=== PATIENT | female | born 1970 | race Caucasian/White ===

== ENCOUNTER 2025-05-17 12:35 | Emergency (ER) | payer BC, SELFPAY ==
--- OUTSIDE RECORDS SUMMARY | 2021-10-13 09:29 | XMS_ITS | Continuity of Care Document ---
Author Organization [facility] Address [address] [address] [place] [address] Phone Care Team Providers Care Ordnance Keeper Name Role Phone Paolo Cassidy MD Unavailable Unavailable Allergies, Adverse Reactions, Alerts Substance Reaction Status Criticality tetracycline Active No Information VIT CALC,IRON,FOLIC ACID (LESS THAN 1 MG) Hives Active No Information VITAMINS WITH CALCIUM Hives Active No Information folic acid Hives Active No Information ferrous sulfate Hives Active No Informati on ferrous fumarate Hives Active No Informat ion PROCAINE HCL increases heart rate Active No Info rmation Medications Medication Instructions Dosage Effective Dates (start - stop) Status Comments lansoprazole 30 mg capsule,delayed release take 1 by Oral route 2 times every day 1 - Active 3 month supply PreserVision AREDS-2 250 mg-200 unit-40 mg-1 mg capsule take 1 capsule by oral route 2 times every day 1 capsule - Active LANSOPRAZOLE (unknown strength) take 1 capsule by ORAL route every day before a meal Not Available - Active losartan 100 mg-hydrochlorothiaz frank 12.5 mg tablet take 1 tablet by oral route every day 1.00 tablet - Active bupropion HCl SR 150 mg tablet,12 hr sustained-release take 1 tablet by ORAL route every day 150 MG - Active loratadine 10 mg tablet take 1 tablet by oral route every day 10 MG - Active atenolol 25 mg tablet take 0.5 tablet by oral route every day 12.5 MG - Active vitamin B complex tablet take 1 Tablet by Oral route every day 1 Tablet - Active VITAMIN D3 (unknown strength) take 1 by Oral route every day Not Available - Active TRIAMCINOLONE ACETONIDE (unknown strength) apply by topical route 2 times every day PRN Not Available - Active Procedures Procedure Date Offic/outpt E&m Estab Mod-hi 2 20 Ugi Endo; W/bx 1/mx Level Iv-surg Path Gross/micro 20 Ugi Endo; W/bx 1/mx Level Iv-surg Path Gross/micro 18 Ugi Endo; W/bx 1/mx Level Iv-surg Path Gross/micro 10 Ugi Endo; W/bx 1/mx Level Iv-surg Path Gross/micro 08 Advance Directives Directive Yes / No Effective Date File Name No Information Encounters Encounter Description Practice Location Reason(s) For Visit Diagnoses Date Provider Providers Copied on Encounter [facility] E, [address] [address], [facility] [place], [id number], [place] tel:[phone] [facility] No Information 2 Khanh Boone. [address] [place] [address], [id number], [place]. tel:[phone] [facility] E, [address] [address], [facility] [place], [id number], [place] tel:[phone] [facility] No Information 1 Khanh Boone. [address] [place] [address], [id number], [place]. tel:[phone] Offic/outpt E&m Estab Mod-hi 2 [facility] E, [address] [address], [facility] [place], [id number], [place] tel:[phone] [facility] GI Symptoms or Concerns (chief complaint) Dyspepsia 0 Khanh Boone. [address] [facility], [facility] [address], [place], [place], [id number], [place]. tel:[phone] Pelon Pearson MD. tel:[phone] erring Provider: Referral Self, USE FOR SELF REFERRALS. [facility], [address] [address], [place], [place], [id number], [place] tel:[phone] [facility] Epigastric painGastroesop hageal reflux disease without esophagitisGas tro-esophageal reflux disease without esophagitisEpi gastric pain 0 Demetrio Herrera. [address] [facility], [address], [id number], [place]. [phone] Pelon Pearson MD. tel:[phone] [place]ring [place]: [place], [address], [address]. tel:[phone] [facility], [address] [address], [place], [id number], [place] tel:[phone] No Information 0 No Information [place]erring [place]: [place], [address], [address]. tel:[phone] [facility], [address] [address], [place], [id number], [place] tel:[phone] [facility] Diarrhea, unspecified typeCentral abdominal painEpigastric painEpigastric painDiarrhea, unspecified 8 No Information [facility], [address] [address], [place], [id number], [place] tel:[phone] [facility] Polyp-intes/re ct/stom-unc BehGastric Polyp-benignGa stroduodenal Dis Nos 0 Shadi Banerjee. [address] [facility], [facility] [address], [place], [place], [id number], [place]. tel:[phone] Referring Provider: [place] Har[place], [address], [place], [address]. tel:[phone] [facility] [address] [address], [place], [id number], tel:[phone] [facility] Gastroduodenal Dis NosGastric Polyp-benign 200 8 No Information Family History Family Member Type Diagnosis Age At Onset Father Problem (finding) Colon polyps Mother Problem (finding) malignant neop lasm of breast in first degree relative Son Problem (finding) Alive and well Father Problem (finding) gallbladder disease Mother Problem (finding) Alive and well Father Problem (finding) Alive and well Father Problem (finding) GERD Immunizations Vaccine Date Status Comments Fluzone Quad 6mo or older administered Note: [facility] bi-direct ional interface ; Source: Other Registry Fluzone Quad 6mo or older administered Note: [facility] bi-direct ional interface ; Source: Other Registry Fluzone Quad 6mo or older administered Note: [facility] bi-direct ional interface ; Source: Other Registry Fluzone Quad 6mo or older administered Note: [facility] bi-direct ional interface ; Source: Other Registry Fluzone Quad 6mo or older administered Note: [facility] bi-direct ional interface ; Source: Other Registry tetanus toxoid, reduced diphtheria toxoid, and acellular pertussis vaccine, adsorbed administered Note: [facility] b i-directional interface ; Source: Other Registry influenza virus vaccine, unspecified formulation administered Note: [facility] bi-di rectional interface ; Source: Other Registry Influenza, seasonal, injecta ble, preservative free administered Note: [facility] bi-direct ional interface ; Source: Other Registry Novel [id number], preservative-free, injectable administered Note: [facility] bi-directional interface ; Source: Other Registry Influenza, seasonal, injectable administe red Note: [facility] bi- directional interface ; Source: Other Registry Influenza, seasonal, injectable administe red Note: [facility] bi- directional interface ; Source: Other Registry tetanus and diphtheria toxoi ds, adsorbed, preservative free, for adult use (2 Lf of tetanus toxoid and 2 Lf of diphtheria toxoid) administered Note: [facility] bi-direct ional interface ; Source: Other Registry Payers Payer name Insurance type Covered republican ID Authoriza timerle(s) [employer] CI [id number] Social History Type Description Quantity Date Captured Comments Sex Female Smoking Status No Information Chief Complaint And Reason For Visit No Information Reason For Referral Reason For Referral No Information History Of Present Illness Encounter Date Complaint History Of Prese nt Illness GI Symptoms or Concerns Ms. Magalis whittaker is a 49-year-old woman with a history of anxiety/depression, hypertension, and chronic epigastric discomfort, who is seen in the office for consultation at the request of Dr. Bonita Patino for epigastric discomfort.Ms. Caputo has had chronic acid, indigestion, and burning sensations in the epigastric region going on for over 10 years. She has had little if any retrosternal burning or regurgitation. She denies any dysphagia or unexplained weight loss.She has undergone multiple endoscopies over the years which have largely been unremarkable and reassuringly normal.She has also treated this with antacids of varying types over the years including Aciphex, Nexium, Prevacid, ranitidine, and Pepcid. Ranitidine was very helpful, but was recently withdrawn from the market. Pepcid, Nexium, and Aciphex were suboptimally effective. Prevacid was helpful, but was unaffordable.Her most recent upper endoscopy was in September 2019. This was a normal exam inclu Functional Status Date Functional Assessmen t No Information Instructions Date Instruction Additional Infor jagjit 1.) Symptoms are con sistent with dyspepsia (likely non-ulcer dyspepsia).2.) If the Prevacid (lansoprazole) seems to be effective I would suggest continued use of this. I would recommend using the [employer] program/gudelia to find the most affordable pharmacy option.3.) We could try other antacid medications as well, if needed, however the lansoprazole seems like a good option for you.4.) Another possible treatment would be the herbal supplement Iberogast. This is typically purchased online. Related to Dyspepsia Non-ulcer dyspepsia (Functional dyspepsia) Related to Dyspepsia Dyspepsia Related to Dyspe psia Assessments Type Assessment Date No Information Patient Care Teams Name Effective Dates (start - stop) Status Members No Information
[2025-05-17 12:42] VITALS: BP 109/72; PULSE 86; RESP 18; TEMP 36.3; O2SAT 98; BMI 30.9
--- NOTE | 2025-05-17 12:53 | CRLHL7_ITS ---
For Patients: As a result of the Century Cures Act, medical imaging exams and procedure reports are released immediately into your electronic medical record. You may view this report before your referring provider. If you have questions, please contact your health care provider. INDICATION: Chest pain. TECHNIQUE: Chest 1 portable view. COMPARISON: None. FINDINGS: No pneumothorax or pleural effusion. Lungs are clear. Cardiac and mediastinal contours are within normal limits. Upper abdomen and osseous structures as imaged show no acute abnormality. IMPRESSION: No evidence of acute cardiopulmonary disease. Dictated by Carlo Do MD @ 05/17/2025 1:31:45 PM (Electronically Signed)
--- NOTE | 2025-05-17 12:54 | ED_ITS ---
HPI - Chest Pain General Chief Complaint: Chest Pain Stated Complaint: Pain in chest Time Seen by Provider: 05/17/25 12:42 History of Present Illness HPI narrative: Patient is a 54-year-old woman with history of hypertension who has been having increasingly severe substernal chest pain with activity. He has not had any significant pain in the last day or so but is troubled by the progressive nature of her chest pain. She has describes no shortness of breath no diaphoresis no nausea no vomiting. She is a nonsmoker. She has no previous history of coronary disease. She has no lower extremity swelling no cough sputum production. No fevers no chills. Related Data Home Medications ?Medication ?Instructions ?Recorded ?Confirmed atenolol PO DAILY 05/17/25 bupropion HCl PO DAILY 05/17/25 lansoprazole PO DAILY 05/17/25 losartan PO DAILY 05/17/25 Allergies Allergy/AdvReac Type Severity Reaction Status Date / Time Tetracyclines Allergy Unknown Verified 05/17/25 12:46 procaine (From Novocain) AdvReac Intermediate Palpitation Verified 05/17/25 12:46 s Review of Systems Status of ROS Reports: 10 or more systems reviewed and unremarkable except as noted in History and below Exam Narrative Exam Narrative: EXAM GENERAL: Patient appears comfortable and well. EYES: No scleral icterus. LYMPH: No supraclavicular or cervical lymphadenopathy. SKIN: Visible skin seen during exam normal or with benign process only. EXT: No dependent lower extremity pedal edema. HEART: Regular rate and rhythm with no murmurs, rubs, or gallops. LUNGS: Clear to auscultation bilaterally with no crackles or wheezes. ABD: Soft, non tender, non distended. PSYCH: Good eye contact, speech is not pressured. Const Vital Signs, click to edit/add: Vital Signs - 24 hr 05/17/25 12:42 Temperature 97.4 F L Pulse Rate [Pulse Oximeter] 86 Respiratory Rate 18 Blood Pressure [Right Upper Arm] 109/72 Pulse Oximetry 98 Oxygen Delivery Method Room Air Course Course ED Course: Patient seen examined. EKG chest x-ray D-dimer troponin CBC comprehensive metabolic panel pending. Vital Signs Vital signs: Initial Vital Signs Temperature 97.4 F L 05/17/25 12:42 Temperature Source Temporal Artery Scan 05/17/25 12:42 Pulse Rate 86 05/17/25 12:42 Respiratory Rate 18 05/17/25 12:42 Blood Pressure 109/72 05/17/25 12:42 Blood Pressure Mean 84 05/17/25 12:42 Blood Pressure Position Sitting 05/17/25 12:42 Pulse Oximetry 98 05/17/25 12:42 Oxygen Delivery Method Room Air 05/17/25 12:42 Vital Signs Temperature 97.4 F L 05/17/25 12:42 Pulse Rate 86 05/17/25 12:42 Respiratory Rate 18 05/17/25 12:42 Blood Pressure 109/72 05/17/25 12:42 Pulse Oximetry 98 05/17/25 12:42 Oxygen Delivery Method Room Air 05/17/25 12:42 Temperature 97.4 F L 05/17/25 12:42 Pulse Rate 86 05/17/25 12:42 Respiratory Rate 18 05/17/25 12:42 Blood Pressure 109/72 05/17/25 12:42 Pulse Oximetry 98 05/17/25 12:42 Oxygen Delivery Method Room Air 05/17/25 12:42 MDM - Chest Pain MDM Narrative Medical decision making narrative: Patient is a 54-year-old woman who has been having progressive chest pain with exertion over the last several weeks. She has history of hypertension but no personal history of coronary disease. She presents to the emergency room largely asymptomatic were EKG shows normal sinus rhythm. Chest x-ray is unremarkable upon my review. D-dimer troponin CBC comprehensive metabolic panel all unremarkable. At this time reassurance is offered we did order a stress echocardiogram as an outpatient. She will limit her activity to activities of daily living in the interim and will come in if symptoms change or worsen. Lab Data Labs: Lab Results 05/17/25 Range/Units 13:09 WBC 7.25 (4.50-11.00) K/uL RBC 4.67 (4.00-5.20) m/uL Hgb 13.6 (12.0-16.0) gm/dL Hct 39.9 (33.0-51.0) % MCV 85 (80-100) fL MCH 29 (26-34) pg MCHC 34 (32-36) gm/dL RDW Coeff of Garrett 14.1 (11.5-15.5) % Plt Count 382 (140-440) K/uL Neut % (Auto) 50.5 (42.0-72.0) % Lymph % (Auto) 27.7 (20-44) % [place] % (Auto) 13.1 H (0.0-11.0) % Eos % (Auto) 8.0 H (0.0-7.0) % Baso % (Auto) 0.6 (0.0-3.0) % Neut # (Auto) 3.66 (1.7-7.0) K/uL Lymph # (Auto) 2.01 (0.90-2.90) K/uL [place] # (Auto) 0.90 (0.00-0.90) K/UL Eos # (Auto) 0.60 H (0.00-0.50) K/uL Baso # (Auto) 0.04 (0.00-0.30) K/uL Abs Immat Gran (auto) 0.01 (0.00-0.30) K/uL Imm/Tot Granulo (auto) 0.1 % D-Dimer Quant (PE/DVT) 0.68 H (0.00-0.50) ug/ml Sodium 138 (135-149) mmol/L Potassium 4.0 (3.6-5.1) mmol/L Chloride 100 (96-114) mmol/L Carbon Dioxide 31 (20-32) mmol/L Anion Gap 7 (7-15) mEq/L BUN 18 (7-30) mg/dL Creatinine 1.0 (0.5-1.5) mg/dL Estimated Creat Clear 54.89 Estimated GFR 67 ml/min Glucose 94 (60-115) mg/dL Calcium 9.3 (8.4-10.6) mg/dL Total Bilirubin 0.5 (0.1-1.5) mg/dL AST 33 (12-35) U/L ALT 30 (4-35) U/L Alkaline Phosphatase 76 (40-150) U/L Troponin I < 0.01 (0.01-0.04) ng/mL Total Protein 7.6 (6.0-8.3) g/dL Albumin 4.4 (3.3-5.0) g/dL Discharge Plan Discharge Clinical Impression: Chest pain Patient Disposition: Home, Self-Care Condition: Stable Instructions: Chest Pain (ED) Additional Instructions: Rest Continue current medications. Outpatient stress echocardiogram. Limit activity to activities of daily living. Activity Level: No Restrictions Discharge Diet: Regular Prescriptions: No Action atenolol PO DAILY losartan PO DAILY bupropion HCl [Wellbutrin] PO DAILY lansoprazole PO DAILY Follow Up/Referrals: Provider,Not a Local [Primary Care Provider, Family Practice] Stand Alone Forms: [employer] Info Instructions
--- OUTSIDE RECORDS SUMMARY | 2025-05-17 13:05 | XMS_ITS | Encounter Summary ---
Author Organization [facility] Address [address] [facility] [place] [address] Care Team Providers Care Watch Repair Technician Name Role Phone Sukumar Amador MD, Bonita Primary Care Provider [phone] Ayde Melo APRN PUBLIC WORKS DIRECTOR Unavailable [phone] Evelyn Thakkar MD Unavailable U navailable Ayde Melo APRN PUBLIC WORKS DIRECTOR Unavailable [phone] Evelyn Thakkar MD Unavailable U navailable Ayde Melo APRN PUBLIC WORKS DIRECTOR Unavailable [phone] Jarett Murray OD Unavailable [phone] Donita Gonzalez MD Unavailable + Donita Gonzalez MD Unavailable + Reason for Visit * Reason Onset Date Comments MyChart Communication 04/17/2022 Encounter Details Date Type Department Care Team (Latest Contact Info) Description 04/17/2022 MyC Medical Advice [facility] [place] [address] [facility] [address] [place] [phone] Ayde Melo APRN PUBLIC WORKS DIRECTOR [address] [facility] [address] [place], [place] [id number] MyChart Communication Social History Tobacco Use Types Packs/Day Years Used Date Smoking Tobacco: Never Smokeless Tobacco: Never Alcohol Use Standard Drinks/Week Comments Not Asked 0 (1 standard drink = 0.6 oz pur e alcohol) PHQ-2 Answer Date Recorded PHQ-2 Score 0 04/15/2022 Comments No Sex and Gender Information Value Date Recorded Sex Assigned at Not on file Legal Sex Female 4:32 AM [employer]ICA[employer] Gender Identity Not on file Sexual Orientation Not on file Occupation Industry Job Start Date Job End Date Not on file Not on file Not on file Not on file COVID-19 Exposure Response Date Recorded In the last 10 days, have joel u been in contact with someone who was confirmed or suspected to have Coronavirus/COVID-19? No / Unsure 04/15/2022 9:48 AM CDT documented as of this encounter Plan of Treatment Not on file documented as of this encounter Visit Diagnoses Not on filedocumented in this encounter Additional Health Concerns Assessment Noted Time PHQ-9 Depression Total Score: 3 12/14/19 19 7:36 AM CDT documented as of this encounter Care Teams Watch Repair Technician Relationship Specialty [place] [address] [facility] [address] [place] [address] PCP - General 04/15/22 Ayde Melo APRN PUBLIC WORKS DIRECTOR [address] [facility] [address] [facility] [place] [address] Assigned OBGYN Provider 04/23/22 Evelyn Thakkar MD [address] [place] [address] Assigned OBGYN Provider 05/21/22 06/23/23 Ayde Melo APRN PUBLIC WORKS DIRECTOR [address] [facility] [address] [address] [place] [address] Assigned OBGYN Provider 06/24/23 Evelyn Thakkar MD Assigned OBGYN Provider 11/03/23 12/11/23 Ayde Melo APRN PUBLIC WORKS DIRECTOR [address] [address] Assigned OBGYN Provider 12/12/23 Jarett Murray OD [address] [place] [address] [address] [place] [phone] Optometry 08/27/24 Donita Gonzalez MD [address] [place] [id number] Ophthalmology 12/02/24 Donita Gonzalez MD [address] [place] [address] [id number] Assigned Surgical Provider 01/10/25 documented as of this encounter
--- OUTSIDE RECORDS SUMMARY | 2025-05-17 13:05 | XMS_ITS | Clinical Summary ---
Author Organization [facility] Address [address] [place] [id number] Care Team Providers Care Letterset Press Set Up Operator Name Role Phone Bonita Patino MD Primary Care Provider [phone] Allergies Active Allergy Reactions Criticality Noted Date Comments Ferrous Fumarate Hives 04/01/2010 Ferrous Sulfate Rash Low 04/01/2010 Multivit,Tx W/Iron (Hematinic) Rash Low 04/01 Procaine Tachycardia 04/11/2011 Omeprazole Itching 07/17/2018 Vit-Iron Fum-Folic Ac Hives 04/01 Medications lansoprazole (PREVACID) 30 mg capsule Take 1 capsule by mouth once daily. 30 capsule 6 4 Active cholecalciferol (VITAMIN D-3) 2,000 unit capsuleIndicatio ns:History of vitamin D deficiency Take 1 capsule by mouth once daily. 90 capsule 8 Active b complex vitamins (VITAMIN B COMPLEX) capsuleIndicatio ns:Mild recurrent major depression Take 1 capsule by mouth once daily. 0 8 Active losartan-hydroch lorothiazide (HYZAAR) 100-12.5 mg tabletIndication s:Essential hypertension, benign TAKE 1 TABLET BY MOUTH EVERY DAY 90 tablet 1 8 Active buPROPion (WELLBUTRIN SR) 150 mg Sustained-Releas e tabletIndication s:Mild recurrent major depression TAKE 1 TABLET BY MOUTH TWICE DAILY 60 tablet 9 Active atenoloL (TENORMIN) 25 mg tabletIndication s:Headache disorder,Mild recurrent major depression TAKE ONE-HALF TABLET BY MOUTH EVERY DAY 15 tablet 0 Active clobetasol 0.05% (TEMOVATE 0.05% OINTMENT) 0.05 % ointment Apply 1 Application topically to affected area(s). 3 Active codeine-guaiFENe sin (ROBITUSSIN AC) 10-100 mg/5 mL liquidIndication s:Upper respiratory tract infection, unspecified type Take 5 mL by mouth every 4 hours if needed for Cough. Max dose 60 mL per 24 hrs. 237 mL 4 Active benzonatate (TESSALON) 100 mg capsuleIndicatio ns:Upper respiratory tract infection, unspecified type Take 1 Capsule (100 mg) by mouth 3 times daily if needed for Cough. 21 Capsule 4 Active methocarbamoL (ROBAXIN) 500 mg tablet TAKE 1 TABLET BY MOUTH THREE TIMES DAILY FOR 1 WEEK THEN TAKE TWICE DAILY 4 Active naproxen (NAPROSYN) 500 mg tablet 4 Active albuterol HFA (PRO-AIR; VENTOLIN; PROVENTIL) 90 mcg/actuation inhalerIndicatio ns:Wheezing Inhale 1-2 Puffs by mouth every 4 hours if needed for Wheezing. 1 Each 4 Active Active Problems Problem Noted Date Diagnosed Date Eczema 02/15/2021 Class 1 obesity without seri ous comorbidity with body mass index (BMI) of 30.0 to 30.9 in adult 11/22/2018 Personal history of DVT (deep vein thrombosis) 0 10/06/2015 Overview (11/01/2023): Left calf, was on coumadin for months, off meds now 2014 Left calf, was on coumadin for months, off meds now 2014 Left calf, was on coumadin for months, off meds now 2014 Anticoagulation monitoring, INR range 2-3 2014 DVT (deep venous thrombosis), left 06/10/2015 Leg DVT (deep venous thromboembolism), acute, le ft 06/10/2015 Depression, major, recurrent 04/30/2013 Vitamin D deficiency 06/14/2012 Overview (06/14/2012): VITAMIN D TOTAL (ng/mL) Date Value 06/12/2012 21.7* Ergocalciferol 50,000 IU 3x/wk for 4 wks started 06/14/2012 Instructed to then switch to D3 5,000 IU/day Re-check Vit D Level in ~3-6 months Allergic Rhinitis 06/12/2012 Overview (06/12/2012): Skin Prick Testing was performed on: 06/12/2012 Sensitive to: [place], Ragweed, Dust Mites & Cockroach Essential hypertension 08/12/2003 Overview (11/01/2023): Epic Epic Gastro-esophageal reflux disease without esophag itis 08/12/2003 Overview (11/01/2023): ESOPHAGEAL REFLUX(aka GERD) ESOPHAGEAL REFLUX(aka GERD) Resolved Problems Problem Noted Date Diagnosed Date Resolved Date Bilateral thoracic back pain 03/31/2023 11/01/2023 Chronic left-sided low back pain with left-sided sciatica 03/31/2023 11/01/2023 DDD (degenerative disc disease), lumbosacral 11/01/2023 DDD (degenerative disc disease), thoracic 03/31/2023 11/01/2023 Scoliosis of thoracolumbar spine 03/31/2023 11/01/2023 Anxiety disorder 02/15/2021 11/01/2023 Headache 02/15/2021 11/01/2023 Immunizations Immunization Administration Dates Next Due AMB INFLUENZA IIV3 (AGE 65+ YRS) PF (Flu Clinic Only) 07/29/2022,06/07/2020,06/13/2019,2017,07/28/2017,05/06/2016,06/09/2015,1 08/26/2013,05/29/2012 COVID-19 vaccine (Slurp[employer]co[employer]uk-Bio NTech 30mcg/0.3mL) PF, MDV 12/08/2020,11/17/2020 Influenza A (H1N1), Inactivated 06/30/2009 Influenza A (H1N1), Inactiva leyda (Age 6-35 Mos) 06/30/2009 Influenza RIV4 (Age 18+ Year s) PRESERV FREE 07/29/2022 Influenza Virus, Unspecified 06/13/2019, 05/10/2018,07/28/2017,2015,06/09/2015,06/26/2014,06/04/2013,1 ,05/27/2004,05/27/2004, 002,06/05/2002 Influenza, IIV3 (Age 6-35 mos) 06/13/2019,2011 Influenza, IIV3 (Age >=3 years) 05/27/20 04,05/27/2004,06/05/2002,2001 Influenza, IIV4 06/15/2023, 0,05/10/2018,2016,05/06/2016,06/09/2015,06/26/2014 TD, UNSPECIFIED 10/04/2013 Td (Age >=7 Years) 02/09/2000 Tdap 10/04/2013,02/09/2000 Family History Medical History Relation Name Comments Hyperlipidemia Father Hypertension Father Diabetes Maternal Grandmother Diabetes Mother Relation Name Status Comments Father Alive Maternal Grandmother Mother Alive Social History Tobacco Use Types Packs/Day Years Used Date Smoking Tobacco: Never Smokeless Tobacco: Never Tobacco Cessation:Counseling Given: Yes Alcohol Use Standard Drinks/Week Comments Yes 0 (1 standard drink = 0.6 oz pur e alcohol) occasional PHQ-2 Answer Date Recorded PHQ-2 Score 0 11/21/2018 Social Connections Answer Date Recorded Frequency of Communication with Friends and Fami ly 0 10/30/2023 Financial Resource Strain Answer Date R ecorded Difficulty of Paying Living Expenses 3 10/30/2023 Difficulty of Paying Living Expenses Not on file 10/30/2023 Food Insecurity Answer Date Recorded Worried About Running Out of Food in the Last Ye ar 1 10/30/2023 Transportation Needs Answer Date Record ed Lack of Transportation (Medical) 1 10/30/2023 Housing Stability Answer Date Recorded Unable to Pay for Housing in the Last Year 1 10/30/2023 Comments No Sex and Gender Information Value Date Recorded Sex Assigned at Not on file Legal Sex Female 6:22 AM RETORT FORKER Gender Identity Not on file Sexual Orientation Not on file Obstetrics History Para Term AB IAB SAB Ectopic Multiple Livin g Live Births 1 1 Date Outcome GA Total Labor Labor/2nd/3rd Weight Sex Type Anes PTL Shannon A1 A5 Name Clin Para Last Filed Vital Signs Vital Sign Reading Time Taken Comments Blood Pressure 130/68 11/01/2023 7:31 AM CDT Pulse 93 11/01/2023 7:31 AM CDT Temperature 36.9 C (98.4 F) 11/01/2023 7:31 AM CDT Respiratory Rate 18 11/01/2023 7:31 AM CDT Oxygen Saturation 97% 11/01/2023 7:31 AM CDT Inhaled Oxygen Concentration - - Weight 80.3 kg (177 lb) 05/27/2023 11:13 AM CDT Height 162.6 cm (5' 4) 05/27/2023 11:13 AM CDT Body Mass Index 30.38 05/27/2023 11:13 AM CDT Plan of Treatment Upcoming Encounters Date Type Department Care Team (Late st Contact Info) Description 05/19/2025 8:30 AM CDT Office Visit [address] [place] [address] Betty Eubanks MD [address] [place] [address] [address] [place] [address] Health Maintenance Due Date Last Done Comments HIV for age 15-65 1984 Hepatitis C screening for ag e 18-79 1987 Hepatitis B series for 19+ ( 1 of 3 - 19+ 3-dose series) 1988 Colonoscopy through age 75 2014 Pap test for age 21-65 10/06/2018 6 (Completed outside of [facility]), 07/21/2015 (Completed outside of [facility]), 10/18/2011 (Completed outside of [facility]) Mammogram for age 45-75 12/12/2018 12/13/19 18, 12/12/2017, 11/15/2016 (Completed outside of [facility]), Additional history exists Pneumococcal series for age 50+ (1 of 1 - PCV) 2019 Zoster (shingles) series for age 50+ (1 of 2) 2019 Depression screening for age 12+ 11/22/2019 11/21/2018, 08/22/2017, 01/31/2017, Additional history exists Tetanus booster 10/04/2023 10/04/2013, 09/21, 02/09/2000, Additional history exists Lipids for age 45-75 11/22/2023 11/21/2018, 08/22/2017, 05/06/2016 BMI (ht and wt on same day) for age 18+ 05/27/2024 05/27/2023, 11/21/2018, 01/31/2017, Additional history exists COVID-19 vaccine series ( - 2024- season) 2025 07/20/2021, 12/08/2020, 11/17/2020 Influenza Vaccine (#1) 2025 3, 07/29/2022, 07/29/2022, Additional history exists RSV vaccine for adults or (1 - 1-dose 75+ series) 2044 Procedures Procedure Name Priority Date/Time Associated Diagnosis Comments LIPID PANEL W REFLEX MEASURED LDL Routine 11/21/2018 8:51 AM CDT Screening, lipid SCAN-MAMMOGRAPHY REPORT 12/12/2017 12:00 AM CDT from Last 3 Months or Most Recently Relevant to Health Maintenance Results * (ABNORMAL) LIPID PANEL W REFLEX MEASURED LDL (11/21/2018 8:51 AM CDT) CHOLESTEROL,TOTAL 169 100 - 199 mg/dL 11/21/2018 1:59 PM CDT [facility] TRIGLYCERIDES 148 <150 mg/dL 11/21/2018 1:59 PM CDT [facility] HDL CHOLESTEROL 38(L) >40 mg/dL 9 1:59 PM CDT [facility] NON-HDL CHOLESTEROL 131 <145 mg/dl 11/21/2018 1:59 PM CDT [facility] CHOL/HDL RATIO 4.45 <4.50 11/21/2018 1:59 PM CDT [facility] LDL CHOLESTEROL 101 <=130 mg/dL 11/21/2018 1:59 PM CDT [facility] PROVIDER ORDERED STATUS RANDOM 11/21/2018 1:59 PM CDT [facility] Blood BLOOD SPECIMEN / Unknown Butterfly / Unknown 11/21/2018 8:51 AM CDT 11/21/2018 8:53 AM CDT us Pelon Pearson MD CHEMISTRY Irena l Result [facility] [address] [place] [address], [place] * SCAN-MAMMOGRAPHY REPORT (12/12/2017 12:00 AM CDT) Anatomical Region Laterality Modality Other us Scanner OTHER Final Result from Last 3 Months or Most Recently Relevant to Health Maintenance [place] [address] [address] [place] [address] Care Teams Letterset Press Set Up Operator Relationship Specialty [place] [address] [place] [address] PCP - General Family Practice 01/31/20
--- OUTSIDE RECORDS SUMMARY | 2025-05-17 13:05 | XMS_ITS | Encounter Summary ---
Author Organization [place] Address [facility] [place] [address] Care Team Providers Care Dental Assistant Medical Assistant Name Role Phone Nieves Pardo PhD LP Unavailable [phone] Pelon Pearson MD Primary Care Provider + [phone] Georgie Varghese MD Unavailable +[phone] Sukumar Amador MD, Bonita Primary Care Provider + [phone] Ayde Melo APRN EARTHMOVING LABOURER Unavailable +1- Evelyn Thakkar MD Unavailable [facility] Ayde Melo APRN EARTHMOVING LABOURER Unavailable +1- Evelyn Thakkar MD Unavailable [facility] Ayde Melo APRN EARTHMOVING LABOURER Unavailable [phone] Jarett Murray OD Unavailable [phone] Donita Gonzalez MD Unavailable + Donita Gonzalez MD Unavailable + Encounter Details Date Type Department Care Team (Late st Contact Info) Description 03/14/2018 BEH Treatment Plan [facility] Mental Health & Addiction [address] [address] Nieves Pardo, PhD LP [facility] [address] [address] Social History Tobacco Use Types Packs/Day Years Used Date Smoking Tobacco: Never Smokeless Tobacco: Never Alcohol Use Standard Drinks/Week Comments Not Asked 0 (1 standard drink = 0.6 oz pur e alcohol) Comments No Sex and Gender Information Value Date Recorded Sex Assigned at Not on file Legal Sex 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 Gender Identity Not on file Sexual Orientation Not on file Occupation Industry Job Start Date Job End Date Not on file Not on file Not on file Not on file documented as of this encounter Plan of Treatment Not on file documented as of this encounter Visit Diagnoses Not on filedocumented in this encounter Additional Health Concerns Assessment Noted Time PHQ-9 Depression Total Score: 2 12/21/19 18 7:37 AM CDT documented as of this encounter Care Teams Dental Assistant Medical Assistant Relationship Specialty Start Date End Date Pelon Pearson MD [facility] [address] [facility] [address] [place] [address] PCP - General Family Practice 09/05/17 04/14/22 [place] [address] [facility] [address] [place], [place] [id number] PCP - General 04/15/22 Nieves Pardo, PhD LP [address] [id number] [place], [place] [address] Licensed Mental Health 12/28/16 9 Georgie Varghese MD XXX RETIRED 01/18/2022 XXX Assigned OBGYN Provider 06/12/20 01/02/21 Ayde Melo APRN EARTHMOVING LABOURER [address] [facility] [address] [place] [address] Assigned OBGYN Provider 04/23/22 05/20/22 Evelyn Thakkar MD [address] [place] [address] Assigned OBGYN Provider 05/21/22 06/23/23 Ayde Melo APRN EARTHMOVING LABOURER [address] [place] [address] Assigned OBGYN Provider 06/24/23 11/02/23 Evelyn Thakkar MD Assigned OBGYN Provider 11/03/23 12/11/23 Ayde Melo APRN EARTHMOVING LABOURER [address] [place] [address] Assigned OBGYN Provider 12/12/23 01/09/25 Jarett Murray OD [address] [place] [address] 4th [place] [id number] Optometry 08/27/24 Donita Gonzalez MD [address] [place] [id number] Ophthalmology 12/02/24 Donita Gonzalez MD [address] [place] [address] [id number] Assigned Surgical Provider 01/10/25 documented as of this encounter
--- OUTSIDE RECORDS SUMMARY | 2025-05-17 13:05 | XMS_ITS | Encounter Summary ---
Author Organization [place] Address [facility] [place] [address] Care Team Providers Care Communications Manager Name Role Phone Nieves Pardo PhD LP Unavailable [phone] Pelon Pearson MD Primary Care Provider + [phone] Georgie Varghese MD Unavailable [phone] Sukumar Amador MD, Bonita Primary Care Provider + [phone] Ayde Melo APRN TEACHER SPECIALIST Unavailable [phone] Evelyn Thakkar MD Unavailable [facility] Ayde Melo APRN TEACHER SPECIALIST Unavailable +1- Evelyn Thakkar MD Unavailable [facility] Ayde Melo APRN TEACHER SPECIALIST Unavailable [phone] Jarett Murray OD Unavailable [phone] Donita Gonzalez MD Unavailable + Donita Gonzalez MD Unavailable + Encounter Details Date Type Department Care Team (Late st Contact Info) Description 10/11/2017 BEH Treatment Plan [facility] Mental Health & Addiction [address] [address] Nieves Pardo, PhD LP [facility] [address] [address] Social History Tobacco Use Types Packs/Day Years Used Date Smoking Tobacco: Never Smokeless Tobacco: Never Alcohol Use Standard Drinks/Week Comments Not Asked 0 (1 standard drink = 0.6 oz pur e alcohol) Comments No Sex and Gender Information Value Date Recorded Sex Assigned at Not on file Legal Sex Female 4:32 AM WASTEWATER 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 [address] [place] [address] PCP - General Family Practice 09/05/17 04/14/22 [place] [address] [facility] [address] [place], [place] [phone] PCP - General 04/15/22 Nieves Pardo, PhD LP [address] [id number] [place], [place] [phone] Licensed Mental Health 12/28/16 9 Georgie Varghese MD XXX RETIRED 01/18/2022 XXX Assigned OBGYN Provider 06/12/20 01/02/21 Ayde Melo APRN TEACHER SPECIALIST [address] [facility] [address] [place] [address] Assigned OBGYN Provider 04/23/22 05/20/22 Evelyn Thakkar MD [address] [place] [address] Assigned OBGYN Provider 05/21/22 06/23/23 Ayde Melo APRN TEACHER SPECIALIST [address] [place] [address] Assigned OBGYN Provider 06/24/23 11/02/23 Evelyn Thakkar MD Assigned OBGYN Provider 11/03/23 12/11/23 Ayde Melo APRN TEACHER SPECIALIST [address] [place] [address] Assigned OBGYN Provider 12/12/23 01/09/25 Jarett Murray OD [address] [place] [address] 4th [place] [phone] Optometry 08/27/24 Donita Gonzalez MD [address] [place] [address] [phone] Ophthalmology 12/02/24 Donita Gonzalez MD [address] [place] [address] [phone] Assigned Surgical Provider 01/10/25 documented as of this encounter
--- OUTSIDE RECORDS SUMMARY | 2025-05-17 13:05 | XMS_ITS | Clinical Summary ---
Author Organization [facility] Address [address] [place] [address] Care Team Providers Care Almond Huller Name Role Phone Sukumar Amador MD, Bonita Primary Care Provider [phone]- [phone] Allergies Active Allergy Reactions Criticality Noted Date Comments Omeprazole Itching 07/17/2018 Other [place]-3s 10/11/2011 Other reaction(s): Hives, Tachycardia vitamins, PN: Novocain (procaine) with dental procedure give tachycardia., vitamins caused hives. Procaine 04/11/2011 Other reaction(s): Tachycardia Tetracyclines High 12/17/2015 Medications VITAMIN B COMPLEX ORAL Take 1 capsule by mouth once daily. 8 Active Cholecalciferol, Vitamin D3, 2,000 unit oral capsule Take 1 capsule by mouth once daily. 8 Active vit C/E/Zn/coppr/lut ein/zeaxan (PRESERVISION AREDS-2 ORAL) Take by mouth. A ctive EUCRISA 2 % Top Oint APPLY TWICE DAILY NEEDED TO AFFECTED AREAS ON THE LEGS FOR MAINTENANCE 1 Active clobetasol (TEMOVATE) 0.05 % Top Oint ointmentIndicati ons:Contact dermatitis, unspecified contact dermatitis type, unspecified trigger Apply 1 Application to skin twice a day. 60 g 3 3 Active lipase-protease- amylase 3,000-9,500- 15,000 unit oral CpDRIndications: Gastro-esophagea l reflux disease without esophagitis Take 1 capsule by mouth three times a day. 270 capsule 3 4 Active Losartan-Hydroch lorothiazide 50-12.5 mg oral tabletIndication s:Essential hypertension Take 1 tablet by mouth once daily. 90 tablet 3 4 Active atenolol (TENORMIN) 25 mg oral tabletIndication s:Essential hypertension TAKE 1/2 TABLET(12.5 MG) BY MOUTH EVERY DAY 45 tablet 3 4 Active buPROPion SR (WELLBUTRIN SR) 150 mg oral sustained release tablet 12 HRIndications:An xiety disorder, unspecified type Take 1 tablet (150 mg) by mouth twice a day. 180 tablet 3 4 Active desonide (DESOWEN) 0.05 % Top creamIndications :Flexural eczema Apply to skin twice a day. For eczema 60 g 5 Active lansoprazole (PREVACID) 30 mg oral delayed release capsule Take 1 capsule (30 mg) by mouth once daily. 100 capsule 5 Active Active Problems Problem Noted Date Diagnosed Date DDD (degenerative disc disease), thoracic 2022 DDD (degenerative disc disease), lumbosacral 06/2023 Chronic left-sided low back pain with left-sided sciatica 03/31/2023 Bilateral thoracic back pain, unspecified chroni city 03/31/2023 Scoliosis of thoracolumbar s pine, unspecified scoliosis type 03/31/2023 Eczema, unspecified type 02/15/2021 Anxiety disorder, unspecified type 02/15/2021 Nonintractable headache, uns pecified chronicity pattern, unspecified headache type 02/15/2021 Personal history of DVT (deep vein thrombosis) 0 10/06/2015 Overview (07/17/2018): Left calf, was on coumadin for months, off meds now 2014 Anticoagulation monitoring, INR range 2-3 2014 DVT (deep venous thrombosis) 06/10/2015 Leg DVT (deep venous thromboembolism), acute, le ft 06/10/2015 Depression, major 04/30/2013 Vitamin D deficiency 06/14/2012 Overview (07/17/2018): Formatting of this note may be different from the original. VITAMIN D TOTAL (ng/mL) Date Value 06/12/2012 21.7* Ergocalciferol 50,000 IU 3x/wk for 4 wks started 06/14/2012 Instructed to then switch to D3 5,000 IU/day Re-check Vit D Level in ~3-6 months Allergic rhinitis 06/12/2012 Overview (07/17/2018): Skin Prick Testing was performed on: 06/12/2012 Sensitive to: [place], Ragweed, Dust Mites & Cockroach Essential hypertension 08/12/2003 Overview (07/17/2018): Epic Gastro-esophageal reflux disease without esophag itis 08/12/2003 Overview (07/17/2018): ESOPHAGEAL REFLUX(aka GERD) Immunizations Immunization Administration Dates Next Due H1N1 Influenza 06/30/2009 Influenza recombinant (FluBl ok Quadrivalent PF) 07/29/2022,06/07/2020,06/13/2019,2017,07/28/2017,05/06/2016,06/09/2015,1 08/26/2013,05/29/2012,05/27/2004, 002 Influenza split virus quadrivalent 06/04/2013,,06/05/2002 GoodClic 12+ Yrs Monovalent CO VID Vaccine (purple cap) 07/20/2021,12/08/2020,11/17/2020 Td adult absorbed PF (2 Lf) 02/09/2000 Tdap 10/04/2013,02/09/2000 Family History Medical History Relation Comments Other Disease Father blood clots Stroke Father Heart Disease Maternal Grandfather Diabetes Maternal Grandmother Breast Cancer Mother Diabetes Mother High Blood Pressure Mother Depression Other Stroke Paternal Grandmother Relation Status Comments Father Maternal Grandfather Maternal Grandmother Mother Other Paternal Grandmother Social History Tobacco Use Types Packs/Day Years Used Date Smoking Tobacco: Never Passive Smoke Exposure: Never Smokeless Tobacco: Never Alcohol Use Standard Drinks/Week Comments Yes 0 (1 standard drink = 0.6 oz pur e alcohol) very rare wine PHQ-2 Answer Date Recorded PHQ2 Total 0 09/18/2024 Comments No Sex and Gender Information Value Date Recorded Sex Assigned at Not on file Legal Sex Female 7:52 AM CDT Gender Identity Not on file Sexual Orientation Not on file Last Filed Vital Signs Vital Sign Reading Time Taken Comments Blood Pressure 118/80 09/18/2024 8:37 AM AQUATICS ASSISTANT DEPARTMENT HEAD Pulse 79 09/18/2024 8:37 AM AQUATICS ASSISTANT DEPARTMENT HEAD Temperature 36.5 C (97.7 F) 09/18/2024 8:37 AM AQUATICS ASSISTANT DEPARTMENT HEAD Respiratory Rate 16 03/30/2023 3:31 PM CDT Oxygen Saturation 97% 11/08/2023 7:35 AM CDT Inhaled Oxygen Concentration - - Weight 78 kg (172 lb) 07/29/2022 10:57 AM AQUATICS ASSISTANT DEPARTMENT HEAD pt reported Height 162.6 cm (5' 4) 09/18/2024 8:37 AM AQUATICS ASSISTANT DEPARTMENT HEAD Body Mass Index 29.52 07/29/2022 10:57 AM AQUATICS ASSISTANT DEPARTMENT HEAD Plan of Treatment Health Maintenance Due Date Last Done Comments Cologuard 1969 Pneumococcal 50+ Years (1 of 1 - PCV) 2019 COVID-19 Vaccine (4 - season) 2025 07/20/2021, 12/08/2020, 11/17/2020 Influenza Vaccine (#1) 2025 , 07/29/2022, 06/07/2020, Additional history exists Anxiety Follow-Up (TYSON-7) 09/18/2025 09/18/2024, 08/2022 Depression Follow-Up (PHQ-9) 09/18/2025 09/18/2024, 06/21/2023 Yearly Review of HCD 09/18/2025 09/18/2024, 03/30/2023, 07/20/2021, Additional history exists Zoster Vaccine (1 of 2) 09/18/2025 Post poned from 2019 (Unavailable) Lipid Screening 07/20/2026 07/20/2021, 06/2 03/2021, 08/22/2017 (Previously completed) Pap Smear 07/20/2026 07/20/2021, 06/0 02/2019, 10/06/2015 (Previously completed), Additional history exists Mammogram Screening 09/18/2026 09/18/2024, 08/04/2023, 08/04/2023, Additional history exists Adult Tetanus Booster 08/01/2034 08/01/2024 , 10/04/2013, 10/04/2013, Additional history exists RSV Vaccines (1 - 1-dose 75+ series) 2044 Hepatitis C Screening Completed 07/20/2021 Meningococcal B Vaccine Aged Out No l onger eligible based on patient's age to complete this topic Procedures Procedure Name Priority Date/Time Associated Diagnosis Comments MAMMO SHERRY SCREENING BI Routine 09/18/2024 9:39 AM AQUATICS ASSISTANT DEPARTMENT HEAD Encounter for screening mammogram for breast cancer HCV ANTIBODY ([facility]) Routine 07/20/2021 10:10 AM AQUATICS ASSISTANT DEPARTMENT HEAD Need for hepatitis C screening test TUBE AND MANIFOLD BUILDER PAP W/SREE HPV HR 16/18 ([facility]) Routine 07/20/2021 10:10 AM AQUATICS ASSISTANT DEPARTMENT HEAD Pap smear for cervical cancer screening LIPID PROFILE CASCADE OP Routine 07/20/2021 10:10 AM AQUATICS ASSISTANT DEPARTMENT HEAD Lipid screening from Last 3 Months or Most Recently Relevant to Health Maintenance Results * MAMMO SHERRY SCREENING BI (09/18/2024 9:39 AM AQUATICS ASSISTANT DEPARTMENT HEAD) Anatomical Region Laterality Modality Breast Bilateral Mammography Impressions 09/18/2024 10:52 AM AQUATICS ASSISTANT DEPARTMENT HEAD : NEGATIVE There is no mammographic evidence of malignancy. RECOMMENDATION: - A screening mammogram in 1 year. BI-RADS: Overall: 1 - Negative The patient will be notified of the results. REPORT SIGNED BY Christina Mancilla MD Narrative 09/18/2024 10:52 AM AQUATICS ASSISTANT DEPARTMENT HEAD EXAM: MAMMO SHERRY SCREENING BI REASON FOR EXAM: Routine screening mammogram COMPARISON: Compared to: 07/29/2022 MAMMO SHERRY SCREENING BI and 07/07/2021 MAMMO OUTSIDE STUDY TECHNIQUE: Craniocaudal and oblique digital views were obtained. Tomosynthesis technique was also utilized. Current study was evaluated with Computer Aided Detection (CAD) system. FINDINGS: There are scattered areas of fibroglandular density. No significant masses, calcifications, or other findings are seen in either breast. There has been no significant interval change. Bonita Amador MD MAMMO ORDERABLE Final Resu lt * TUBE AND MANIFOLD BUILDER PAP W/SREE HPV HR 16/18 ([facility]) (07/20/2021 10:10 AM AQUATICS ASSISTANT DEPARTMENT HEAD) Diagnosis: ([facility]) Comment 09/2020 7:07 PM AQUATICS ASSISTANT DEPARTMENT HEAD [facility] Comment: NEGATIVE FOR INTRAEPITHELIAL LESION OR MALIGNANCY. Specimen Adequacy: ([facility]) Comment 07/22/2021 7:07 PM AQUATICS ASSISTANT DEPARTMENT HEAD [facility] Comment: Satisfactory for evaluation. Clinician Provided ICD10: ([facility]) Comment 07/22/2021 7:07 PM AQUATICS ASSISTANT DEPARTMENT HEAD [facility] Comment: Z12.4 Performed by: Comment 07/22/2021 7:07 PM [facility] Comment: Pattie Gibson, Rivet Tosser (ASCP) Cyto Comments ([facility]) . 07/22/2021 7:07 PM AQUATICS ASSISTANT DEPARTMENT HEAD [facility] Note: ([facility]) Comment 7:07 PM AQUATICS ASSISTANT DEPARTMENT HEAD [facility] Comment: The Pap smear is a screening test designed to aid in the detection of premalignant and malignant conditions of the uterine cervix. It is not a diagnostic procedure and should not be used as the sole means of detecting cervical cancer. Both false-positive and false-negative reports do occur. Test Methodology ([facility]) Comment 07/22/2021 7:07 PM AQUATICS ASSISTANT DEPARTMENT HEAD [facility] Comment: This liquid based ThinPrep(R) pap test was screened with the use of an image guided system. HPV Other HR Types ([facility]) Negative Negative 07/22/2021 7:07 PM AQUATICS ASSISTANT DEPARTMENT HEAD [facility] HPV 16 ([facility]) Negative Negative 07/22/20 7:07 PM AQUATICS ASSISTANT DEPARTMENT HEAD [facility] HPV 18 ([facility]) Negative Negative 07/22/20 7:07 PM AQUATICS ASSISTANT DEPARTMENT HEAD [facility] Comment: This nucleic acid amplification test detects fourteen high-risk HPV types: HPV16, HPV18 and twelve other high-risk types (31,33,35,39,45,51,52,56,58,59,66,68) without differentiation. Vaginal and cervical cytologic material (specimen) 07/20/2021 10:10 AM AQUATICS ASSISTANT DEPARTMENT HEAD 07/20/2021 10:10 AM AQUATICS ASSISTANT DEPARTMENT HEAD Narrative [facility] - 07/22/2021 7:07 PM AQUATICS ASSISTANT DEPARTMENT HEAD Specimen Comment: [id number] Specimen Comment: No. of containers..01 ThinPrep Vial [facility]formed at: - [facility] [address] [facility] [address], [place], [place] [id number] Export Freight Manager: Lan Perez MD, Phone: [phone] Performed at: - [facility] [place] [address], [place] [id number] Export Freight Manager: Vineet Mccartney MD, Phone: [phone] us Bonita Amador MD [facility] ORDERABLES Final R esult Performing Organization Address City/[facility]/ZIP Co de Phone Number [facility] [address] [place] [address] * HCV ANTIBODY ([facility]) (07/20/2021 10:10 AM AQUATICS ASSISTANT DEPARTMENT HEAD) Hepatitis C Virus Antibody ([facility]) <0.1 0.0 - 0.9 s/co ratio 07/21/2021 8:09 AM AQUATICS ASSISTANT DEPARTMENT HEAD [facility] Comment: Negative: < 0.8 Indeterminate: 0.8 - 0.9 Positive: > 0.9 The CDC recommends that a positive HCV antibody result be followed up with a HCV Nucleic Acid Amplification test (916165). Blood Venipuncture / Unknown 07/20/2021 10:10 AM AQUATICS ASSISTANT DEPARTMENT HEAD 07/20/2021 10:10 AM AQUATICS ASSISTANT DEPARTMENT HEAD Narrative [facility] - 07/21/2021 8:09 AM AQUATICS ASSISTANT DEPARTMENT HEAD Performed at: - [facility] [address] [place], [place] [id number] Export Freight Manager: Vineet Mccartney MD, Phone: [phone] us Bonita Amador MD [facility] ORDERABLES Final R esult Performing Organization Address City/[facility]/ZIP Co de Phone Number [facility] [address] [place] [address] * (ABNORMAL) LIPID PROFILE CASCADE OP (07/20/2021 10:10 AM AQUATICS ASSISTANT DEPARTMENT HEAD) Cholesterol OP 235(H) <200 mg/dL 07/20/2021 11:01 AM AQUATICS ASSISTANT DEPARTMENT HEAD [facility] Triglycerides OP 181(H) <150 mg/dL 07/20/2021 11:01 AM [facility] LDL Cholesterol, Calc OP 141(H) <100 mg/dL 07/20/2021 11:01 AM AQUATICS ASSISTANT DEPARTMENT HEAD [facility] HDL Cholesterol OP 58 >40 mg/dL 2020 11:01 AM [facility] Cholesterol/HDL Ratio OP 4.1 0.0 - 4.9 07/20/2021 11:01 AM [facility] Specimen Type 07/20/2021 11:01 AM [facility] Blood Venipuncture / Unknown 07/20/2021 10:10 AM AQUATICS ASSISTANT DEPARTMENT HEAD 07/20/2021 10:10 AM AQUATICS ASSISTANT DEPARTMENT HEAD Narrative [facility] - 07/20/2021 11:01 AM [facility] LDL CHOLESTEROL REFERENCE RANGES: (FOR PATIENTS W/O HEART DISEASE) <100 mg/dL = Optimal 100-129 mg/dL = Near/Above Optimal 130-159 mg/dL = Borderline High 160-189 mg/dL = High >/= 190 mg/dL = Very High Bonita Amador MD CHEMISTRY ORDERABLE Final Result [facility] [address] [facility] [address] [place] [address], from Last 3 Months or Most Recently Relevant to Health Maintenance Insurance ZZ_PREFERRED 1 [facility] Ice[employer] Advance Directives For more information, please contact: [phone] Documents on File Type Date Recorded Patient Titrator Expl anation HCD - Complete 10/15/2020 2:24 PM 06/30/20 17 Care Teams Almond Huller Relationship Specialty Start Date End Date Bonita Patino MD PCP - General Family Medicine 07/17/18
--- OUTSIDE RECORDS SUMMARY | 2025-05-17 13:05 | XMS_ITS | Encounter Summary ---
Author Organization [place] Address [facility] [place] [address] Care Team Providers Care Hotel Office Manager Name Role Phone Nieves Pardo PhD LP Unavailable [phone] Pelon Pearson MD Primary Care Provider + [phone] Georgie Varghese MD Unavailable [phone] Sukumar Amador MD, Bonita Primary Care Provider + [phone] Ayde Melo APRN CORPORATE FITNESS PROGRAM COORDINATOR Unavailable [phone] Evelyn Thakkar MD Unavailable [facility] Ayde Melo APRN CORPORATE FITNESS PROGRAM COORDINATOR Unavailable +1- Evelyn Thakkar MD Unavailable [facility] Ayde Melo APRN CORPORATE FITNESS PROGRAM COORDINATOR Unavailable [phone] Jarett Murray OD Unavailable [phone] Donita Gonzalez MD Unavailable + Donita Gonzalez MD Unavailable + Encounter Details Date Type Department Care Team (Late st Contact Info) Description 09/20/2018 [facility]H Treatment Plan [facility] & Addiction [address] [address] Nieves Pardo, PhD LP [facility] [address] [address] Social History Tobacco Use Types Packs/Day Years Used Date Smoking Tobacco: Never Smokeless Tobacco: Never Alcohol Use Standard Drinks/Week Comments Not Asked 0 (1 standard drink = 0.6 oz pur e alcohol) Comments No Sex and Gender Information Value Date Recorded Sex Assigned at Not on file Legal Sex Female 4:32 AM ARCHITECTURAL WOOD MODEL MAKER Gender Identity Not on file Sexual Orientation [...] documented as of this encounter Care Teams Hotel Office Manager Relationship Specialty Start Date End Date Pelon Pearson MD [facility] [address] [facility] [address] [place] [address] PCP - General Family Practice 09/05/17 04/14/22 [place] [address] [facility] [address] [place], [place] [id number] PCP - General 04/15/22 Nieves Pardo, PhD LP [id number] [place], [place] [id number] Licensed Mental Health 12/28/16 9 Georgie Varghese MD XXX RETIRED 01/18/2022 XXX Assigned OBGYN Provider 06/12/20 01/02/21 Ayde Melo APRN CORPORATE FITNESS PROGRAM COORDINATOR [address] [facility] [address] [place] [address] Assigned OBGYN Provider 04/23/22 05/20/22 Evelyn Thakkar MD [address] [place] [address] Assigned OBGYN Provider 05/21/22 06/23/23 Ayde Melo APRN CORPORATE FITNESS PROGRAM COORDINATOR [address] [place] [address] Assigned OBGYN Provider 06/24/23 11/02/23 Evelyn Thakkar MD Assigned OBGYN Provider 11/03/23 12/11/23 Ayde Melo APRN CORPORATE FITNESS PROGRAM COORDINATOR [address] [place] [address] Assigned OBGYN Provider 12/12/23 01/09/25 Jarett Murray OD [address] [place] [address] [address] [place] [id number] Optometry 08/27/24 Donita Gonzalez MD [address] [place] [id number] Ophthalmology 12/02/24 Donita Gonzalez MD [address] [place] [id number] Assigned Surgical Provider 01/10/25 documented as of this encounter
--- OUTSIDE RECORDS SUMMARY | 2025-05-17 13:05 | XMS_ITS | Patient Health Record ---
Author Organization [facility] Address [address] [place] [address] Care Team Providers Care Pipe Roller Name Role Phone IRAIDA MONZON Unavailable [phone] Reason For Referral No Information Medications Medication SIG (Take, Route, Frequency, Duration) Notes Start Date End Date Status Prevacid Active Losartan Potassium A ctive Prevacid 30 MG Capsule Delayed Release 1 capsule before a meal Orally Twice a day; Duration: 30 day(s) 09/05/2013 Active Ibuprofen Active Problems Problem Type SNOMED Code ICD Code Onset Dates Problem Status W/U Status Risk Notes Problem Lymphadenopathy (04112406) Lymphadenopathy (785.6) Active confirmed Problem Laryngopharyngeal reflux (766735818) Laryngopharyngeal reflux (478.79) Active confirmed Problem Upper respiratory infection (12691653) URI (upper respiratory infection) (465.9) Active confirmed Plan Of Treatment No Information Insurance Providers Payer Name Payer Address Payer Phone Subscriber Number Group Number Insured Name Patient Relationship to Insured Coverage Start Date Coverage End Date PREFERRED [facility] [address] [address] ZOFIA Alatorre LISA [id number] Jonathan Rodgers Spouse - patient is the spouse of the insured Medical (General) History Medical History History ICD Code hypertension GERD depression Surgical History Surgery Date(Month/Year) appendectomy
--- OUTSIDE RECORDS SUMMARY | 2025-05-17 13:05 | XMS_ITS | Clinical Summary ---
Author Organization [place] Address [facility] [address] Care Team Providers Care Space Engineer Name Role Phone Sukumar Amador MD, Bonita Primary Care Provider [phone] Jarett Murray OD Unavailable [phone] Donita Gonzalez MD Unavailable + Donita Gonzalez MD Unavailable + Allergies Active Allergy Reactions Criticality Noted Date Comments B-Plex Plus Rash Low 04/01/2010 Ferrous Fumarate Hives 04/01/2010 Ferrous Sulfate Rash Low 04/01/2010 Folic Acid Rash Low 04/01/2010 Vit-Fe Fumarate-Fa Hives 04/01/20 10 Procaine Anaphylaxis High 03/13/2008 Tetracycline 05/19/2022 Tetracyclines & Related 12/17/2015 Medications atenolol (TENORMIN) 25 MG tablet 12.5 mg 8 Active buPROPion (WELLBUTRIN SR) 150 MG 12 hr tablet 2 Active clobetasol (TEMOVATE) 0.05 % external cream APPLY TWICE DAILY TO TO THE AFFECTED AREA ON THE LEGS FOR 2 WEEKS FOR FLARES 1 Active crisaborole (EUCRISA) 2 % ointment APPLY TWICE DAILY NEEDED TO AFFECTED AREAS ON THE LEGS FOR MAINTENANCE 1 Active LANsoprazole (PREVACID) [address] capsule Take by mouth every 12 hours 1 Active losartan-hydroc hlorothiazide (HYZAAR) 50-12.5 MG tablet Take 1 tablet by mouth daily 2 Active CREON CPEP per EC capsule Take 1 capsule by mouth 3 times daily 2 Active olopatadine (PAZEO) 0.7 % ophthalmic solutionIndicat ions:Allergic conjunctivitis, bilateral Apply 1 drop to eye daily. 2.5 mL 3 5 Active Active Problems Problem Noted Date Diagnosed Date Personal history of DVT (deep vein thrombosis) 0 10/06/2015 Overview (10/06/2015): Left calf, was on coumadin for months, off meds now 2014 Immunizations Immunization Administration Dates Next Due COVID-19 MONOVALENT 12+ (Pfizer) 07/20/2021,11/20,11/17/2020 Flu, Unspecified 06/04/2013 [id number] Novel Flu P-free 06/30/2009 Influenza (H1N1) 06/30/2009 Influenza (IIV3) PF 06/04/2013,05/27/2004,2001 Influenza (prior to 2023) 06/13/2019,,07/28/2017,2015,06/09/2015,06/26/2014,05/27/2004,1 Influenza Vaccine 18-64 (Flublok) 07/29/2022 Influenza Vaccine >6 months,quad, PF ,06/07/2020,06/13/2019,2017,07/28/2017,05/06/2016,06/09/2015,1 08/26/2013,05/29/2012,05/27/2004, 002 Influenza Vaccine, 6+MO IM (QUADRIVALENT W/PRESERVATIVES) 06/04/2013,05/27/2004,06/05/2002 TDAP (Adacel,Boostrix) 10/04/2013 TDAP Vaccine (Adacel) 02/09/2000 Td (Adult), Adsorbed 02/09/2000 Tdap (Adult) Unspecified Formulation 10/04/2013 Family History Medical History Relation Comments Hyperlipidemia Father Hypertension Father Macular Degeneration Father Hypertension Maternal Grandfather Hypertension Maternal Grandmother Diabetes Mother Hyperlipidemia Mother Hypertension Mother Diabetes Other aunt Hypertension Paternal Grandmother Glaucoma No family hx of Relation Status Comments Father Maternal Grandfather Maternal Grandmother Mother Other Paternal Grandmother Social History Tobacco Use Types Packs/Day Years Used Date Smoking Tobacco: Never Smokeless Tobacco: Never Alcohol Use Standard Drinks/Week Comments Not Asked 0 (1 standard drink = 0.6 oz pur e alcohol) PHQ-2 Answer Date Recorded PHQ-2 Score 0 12/16/2024 Adolescent Education Answer Date Record ed Getting School Help Needed Not on file 06/04 Comments No Sex and Gender Information Value Date Recorded Sex Assigned at Not on file Legal Sex Female 4:32 AM MEDICAL OFFICE ASST Gender Identity Not on file Sexual Orientation Not on file Occupation Industry Job Start Date Job End Date Not on file Not on file Not on file Not on file Last Filed Vital Signs Vital Sign Reading Time Taken Comments Blood Pressure 133/79 06/23/2022 7:10 AM CDT Pulse 103 06/23/2022 7:10 AM CDT Temperature 37.2 C (99 F) 09/05/2017 8:32 PM MEDICAL OFFICE ASST Respiratory Rate 18 09/05/2017 10:33 PM MEDICAL OFFICE ASST Oxygen Saturation 97% 06/23/2022 7:10 AM CDT Inhaled Oxygen Concentration - - Weight 78 kg (172 lb) 05/19/2022 10:14 AM CDT Height 162.6 cm (5' 4) 05/19/2022 10:14 AM CDT Body Mass Index 29.52 05/19/2022 10:14 AM CDT Plan of Treatment Health Maintenance Due Date Last Done Comments ADVANCE CARE PLANNING 1970 ANNUAL REVIEW OF HM ORDERS 1969 CT COLONOGRAPHY 1969 FIT 1969 FLEX SIG 1969 sDNA (Cologuard) 1969 COLONOSCOPY 1979 COLORECTAL CANCER SCREENING 1979 HIV SCREENING 1984 HEPATITIS B VACCINE (1 of 3 - 19+ 3-dose series) 1988 PNEUMOCOCCAL VACCINE 50+ YEARS (1 of 1 - PCV) 2019 ZOSTER VACCINE (1 of 2) 2019 DIABETES SCREENING 09/05/2020 09/05/2017 YEARLY PREVENTIVE VISIT 02/15/2022 02/16/20 21, 01/25/2019, 12/19/2017, Additional history exists COVID-19 VACCINE ( season) 2025 07/20/2021, 12/08/2020, 11/17/2020 INFLUENZA VACCINE (#1) 2025 , 07/29/2022, 06/07/2020, Additional history exists MAMMO SCREENING 09/18/2025 09/18/2024, 08/22, 08/04/2023, Additional history exists HPV TEST 07/20/2026 07/20/2021, 06/23, 01/25/2019, Additional history exists LIPID 07/20/2026 07/20/2021 PAP 07/20/2026 07/20/2021, 06/23, 07/20/2021, Additional history exists DTAP/TDAP/TD VACCINE (5 - Td or Tdap) 08/01/2034 08/01/2024, 10/04/2013, 10/04/2013, Additional history exists HEPATITIS C SCREENING Completed 07/20/2021, 021 PHQ-2 (once per calendar year) Completed 12/16/2024, 04/15/2022, 11/28/2018, Additional history exists HPV VACCINE (No Doses Required) Completed MENINGITIS VACCINE Aged Out No longer eligible based on patient's age to complete this topic Procedures Procedure Name Priority Date/Time Associated Diagnosis Comments MAMMOGRAM - HIM SCAN Routine 07/21/2022 ABSTRACT PAP ([facility] EXTERNAL RESULT) Routine 07/20/2021 10:10 AM MEDICAL OFFICE ASST HEPATITIS C (HIM EXTERNAL RESULT) Routine 07/20/2021 10:10 AM MEDICAL OFFICE ASST LIPID PANEL (EXTERNAL RESULT) Routine 07/20/2021 10:10 AM MEDICAL OFFICE ASST ABSTRACT HPV (HIM EXTERNAL RESULT) Routine 07/20/2021 10:10 AM MEDICAL OFFICE ASST COMPREHENSIVE METABOLIC PANEL STAT 09/05/2017 8:59 PM MEDICAL OFFICE ASST from Last 3 Months or Most Recently Relevant to Health Maintenance Results * Mammogram - [facility] Scan (07/21/2022) Anatomical Region Laterality Modality Other Narrative 07/21/2022 Patient reports she had a Negative Mammogram done at [facility]. Patient Reported IMG MAMMOGRAPHY ORDERABLES Irena l Result * (ABNORMAL) Lipid Panel (External Result) (07/20/2021 10:10 AM MEDICAL OFFICE ASST) Pathologist [facility] Cholesterol (External) 235(H) <200 mg/dL [facility] Triglycerides (External) 181(H) <150 mg/dL [facility] HDL Cholesterol (External) 58 >40 mg/dL [facility] LDL Cholesterol Calculated (External) 141(H) <100 mg/dL [facility] Blood 07/20/2021 10:1 0 AM MEDICAL OFFICE ASST Narrative [facility] - 07/20/2021 10:10 AM MEDICAL OFFICE ASST See Care [facility] Provider Outside LAB - [facility] EXTERNAL RESULT Final Result [facility] [address] [place], [place] [id number] [place] [address] * Hepatitis C (HIM External Result) (07/20/2021 10:10 AM MEDICAL OFFICE ASST) Hep C HIM See Scanned Document [facility] Comment:Negative 07/20/2021 10:1 0 AM MEDICAL OFFICE ASST Narrative [facility] Yumiko SPAULDING - 07/20/2021 10:10 AM MEDICAL OFFICE ASST See Care [facility] us Provider Outside LAB - HIM EXTERNAL RESULT Final Result [facility] [address] [place] [address] * Abstract HPV (HIM External Result) (07/20/2021 10:10 AM MEDICAL OFFICE ASST) HPV Abstract See Scanned Document [facility] [place] ([facility]) Comment:Negative 07/20/2021 10:1 0 AM MEDICAL OFFICE ASST Narrative [facility] [place] ([facility]) - 07/20/2021 10:10 AM MEDICAL OFFICE ASST See [facility] us Provider Outside LAB - HIM EXTERNAL RESULT Final Result [facility] [place] ([facility]) [address] [place] [address] [phone] * Abstract PAP (HIM External Result) (07/20/2021 10:10 AM MEDICAL OFFICE ASST) [facility] PAP-ABSTRACT See Scanned Document [facility] Comment:NILM 07/20/2021 10:1 0 AM MEDICAL OFFICE ASST [facility] - 07/20/2021 10:10 AM MEDICAL OFFICE ASST See Care [facility] us Provider Outside LAB - HIM EXTERNAL RESULT Final Result [facility] [address] * Comprehensive metabolic panel (09/05/2017 8:59 PM MEDICAL OFFICE ASST) [facility] Sodium 139 133 - 144 mmol/L 09/05/2017 9:[address] [facility] Potassium 3.6 3.4 - 5.3 mmol/L 09/05/2017 9:[address] [facility] Chloride 104 94 - 109 mmol/L 09/05/2017 9:[address] [facility] Carbon Dioxide 27 20 - 32 mmol/L 09/05/2017 9:[address] [facility] Anion Gap 8 3 - 14 mmol/L 09/05/2017 9:[address] [facility] Glucose 86 70 - 99 mg/dL 09/05/2017 9:[address] [facility] Urea Nitrogen 14 7 - 30 mg/dL 09/05/2017 9:[address] [facility] Creatinine 0.91 0.52 - 1.04 mg/dL 09/05/2017 9:[address] [facility] GFR Estimate 66 >60 mL/min/1.7 m2 09/05/2017 9:[address] [facility] Comment:Non GFR Calc GFR Estimate If Black 80 >60 mL/min/1.7 m2 09/05/2017 9:[address] [facility] Comment: GFR Calc Calcium 8.8 8.5 - 10.1 mg/dL 09/05/2017 9:[address] [facility] Bilirubin Total 0.6 0.2 - 1.3 mg/dL 09/05/2017 9:[address] [facility] Albumin 3.8 3.4 - 5.0 g/dL 09/05/2017 9:[address] [facility] Protein Total 7.8 6.8 - 8.8 g/dL 09/05/2017 9:[address] [facility] Alkaline Phosphatase 58 40 - 150 U/L 09/05/2017 9:[address] [facility] ALT 23 0 - 50 U/L 09/05/2017 9:[address] [facility] AST 14 0 - 45 U/L 09/05/2017 9:[address] [facility] Blood specimen (specimen) 09/05/2017 8:59 PM MEDICAL OFFICE ASST 09/05/2017 9:04 PM MEDICAL OFFICE ASST Ayush Bar MD LAB - BLOOD ORDERABLES Irena luciano Result [facility] [address] [address], [facility] [phone] from Last 3 Months or Most Recently Relevant to Health Maintenance Insurance [place] OF [place] [facility] Care Teams Space Engineer Relationship Specialty [place] [address] [place] [address] PCP - General 04/15/22 Jarett Murray OD [address] [place] [address] 4[address] [place] [phone] Optometry 08/27/24 Donita Gonzalez MD [address] [place] [address] [id number] Ophthalmology 12/02/24 Donita Gonzalez MD [address] [place] [id number] Assigned Surgical Provider 01/10/25
--- OUTSIDE RECORDS SUMMARY | 2025-05-17 13:06 | XMS_ITS | Encounter Summary ---
Author Organization [place] Address [address] [facility] [place] [address] Care Team Providers Care Auto Club Travel Counselor Name Role Phone [facility] P rogurpreet Nieves Pardo PhD LP Unavailable [phone] Pelon Pearson MD Primary Care Provider [phone] Georgie Varghese MD Unavailable +[phone] Sukumar Amador MD, Bonita Primary Care Provider + [phone] Ayde Melo APRN NURSE INTERN Unavailable +1- Evelyn Thakkar MD Unavailable U navailable Ayde Melo APRN NURSE INTERN Unavailable +- Evelyn Thakkar MD Unavailable U navailable MestaAyde westbrook APRN NURSE INTERN Unavailable +1- Jarett Murray OD Unavailable +[phone] Donita Gonzalez MD Unavailable + Donita Gonzalez MD Unavailable + Encounter Details Date Type Department Care Team (Late st Contact Info) Description 11/30/[address] [facility] [place] [id number] [place] [phone] Nieves Pardo, PhD LP [facility] [address] [id number] Social History Tobacco Use Types Packs/Day Years Used Date Smoking Tobacco: Never Alcohol Use Standard Drinks/Week Comments Not Asked 0 (1 standard drink = 0.6 oz pur e alcohol) Comments No Sex and Gender Information Value Date Recorded Sex Assigned at Not on file Legal Sex Female 4:32 AM SECOND BUTLER Gender Identity Not on file Sexual Orientation [...] Total Score: 5 10/07/19 16 8:01 AM SECOND BUTLER documented as of this encounter Care Teams Auto Club Travel Counselor Relationship Specialty Start Date End Date [facility], [address] [id number] PCP - General 11/07/12 09/04/17 Pelon Pearson MD [facility] [address] [place] [address] PCP - General Family Practice 09/05/17 04/14/22 [place] [address] [place] [address] PCP - General 04/15/22 Nieves Pardo, PhD LP [address] [place] [address] Licensed Mental Health 12/28/16 9 Georgie Varghese MD XXX RETIRED 01/18/2022 XXX Assigned OBGYN Provider 06/12/20 01/02/21 Ayde Melo APRN NURSE INTERN [address] [place] [address] Assigned OBGYN Provider 04/23/22 05/20/22 Evelyn Thakkar MD [address] [place] [address] Assigned OBGYN Provider 05/21/22 06/23/23 Ayde Melo APRN NURSE INTERN [address] [place] [address] Assigned OBGYN Provider 06/24/23 11/02/23 Evelyn Thakkar MD Assigned OBGYN Provider 11/03/23 12/11/23 Ayde Melo APRN NURSE INTERN [address] [place] [id number] Assigned OBGYN Provider 12/12/23 01/09/25 Jarett Murray OD [address] [place] [address] [address] [place] [phone] Optometry 08/27/24 Donita Gonzalez MD [address] [place] [address] Ophthalmology 12/02/24 Donita Gonzalez MD [address] [place] [address] [id number] Assigned Surgical Provider 01/10/25 documented as of this encounter
--- OUTSIDE RECORDS SUMMARY | 2025-05-17 13:06 | XMS_ITS | Clinical Summary ---
Author Organization [facility] Address [address], [place] [address] Care Team Providers Care Wet Chemistry Analyst Name Role Phone Mar Bush APRN, DIRECTOR OF AGRONOMY Primary Care Provider + Source Comments You are receiving this document as you are listed as the primary care provider,follow-up provider, or the patient has been referred to you for consultation.This is in compliance with the Medicare andOhio [facility] Cent[facility]aid EHR Incentive Program,which states Providers who transition their patient to another setting of careor provider of care or refers their patient to another provider of care shouldprovide summary care record for each transition of care or referral. [facility] Allergies Active Allergy Reactions Criticality Noted Date Comments Omeprazole Itching 07/17/2018 Other Hives,Tachycardia 10/11/2011 vitamins, PN: Novocain (procaine) with dental procedure give tachycardia., vitamins caused hives. Procaine Tachycardia 04/11/2011 Tetracyclines & Related High 12/17/2015 Medications buPROPion (AKA WELLBUTRIN) 75 MG tablet Take 1 Tablet (75 mg) by mouth daily. 4 Active loratadine (AKA CLARITIN) 10 MG tablet Take 1 Tablet (10 mg) by mouth daily. 6 Active atenolol (TENORMIN) 25 MG tablet Take 1/2 tab a day 8 Active clobetasol (TEMOVATE) 0.05 % cream APPLY TOPICALLY TWICE DAILY TO THE AFFECTED AREAS ON THE LEGS FOR 2 WEEKS FOR FLARES 1 Active EUCRISA 2 % OINT APPLY TWICE DAILY NEEDED TO AFFECTED AREAS ON THE LEGS FOR MAINTENANCE 1 Active losartan-hydroc hlorothiazide (HYZAAR) 50-12.5 MG tablet Take 1 Tablet by mouth daily. 2 Active lansoprazole (PREVACID) 30 MG capsule Take by mouth every 12 hours. 1 Active CREON 5708-6401 units CPEP Take 1 Capsule by mouth three times a day. 2 Active Active Problems Problem Noted Date Diagnosed Date Anxiety disorder 02/15/2021 Eczema 02/15/2021 Nonintractable headache 02/15/2021 Personal history of DVT (deep vein thrombosis) 0 10/06/2015 Overview (12/20/2021): Left calf, was on coumadin for months, off meds now 2014 Allergic rhinitis 09/28/2012 HTN (hypertension) 09/28/2012 Essential hypertension 08/12/2003 Overview (05/21/2015): Epic Gastro-esophageal reflux disease without esophag itis 08/12/2003 Overview (12/20/2021): ESOPHAGEAL REFLUX(aka GERD) Depression, major Resolved Problems Problem Noted Date Diagnosed Date Resolved Date Esophageal reflux 08/12/2003 12/20/2021 Overview (04/12/2017): ESOPHAGEAL REFLUX(aka GERD) Immunizations Immunization Administration Dates Next Due Flu Vac Preserv Free (3+yrs) 06/13/2019, 05/29/2012,05/27/2004,2001 Flublok (RIV4) 07/29/2022 H1n1 Miv Sanofi 3+ Yr (Injected) 06/30/2009 Influenza ([place] Only) (Flul aval Quad 0.5, 3+ yrs) 06/04/2013,05/27/2004,06/05/2002 Influenza IIV4 (Quadrivalent ) 0.5mL (86888) 06/07/2020,06/13/2019,05/10/2018,2016,05/29/2012,05/27/2004,06/05/2002 Influenza, Unspecified Formulation 06/04/2013 Pfizer Monovalent 12+ Purple Top 07/20/2021,11/20,11/17/2020 TDAP (ADACEL) 02/09/2000 TDAP (BOOSTRIX) 10/04/2013 Family History Medical History Relation Name Comments DVT/PE Father High Cholesterol Father Hypertension Father Stroke Father Cancer, Breast Mother Depression Mother Mild Diabetes Mother High Cholesterol Mother Hypertension Mother Osteoarthritis Mother Heart Attack Maternal Grandfather Possibl e addt'l CVA Diabetes Maternal Grandmother Hypertension Maternal Grandmother Heart Attack Paternal Grandmother Stroke Paternal Grandmother Cancer, Colon Negative Family History Cancer, Ovary Negative Family History Colon Polyps Negative Family History Relation Name Status Comments Father Alive Mother Alive Maternal Grandfather Maternal Grandmother Paternal Grandmother Son Toby Alive Born 1989 Social History Tobacco Use Types Packs/Day Years Used Date Smoking Tobacco: Never Passive Smoke Exposure: Never Smokeless Tobacco: Never Tobacco Cessation:Counseling Given: Not Answered Alcohol Use Standard Drinks/Week Comments Yes 0 (1 standard drink = 0.6 oz pur e alcohol) 1-2 drinks / month PHQ-2 Answer Date Recorded PHQ-2 Score 2 09/17/2024 Comments No Sex and Gender Information Value Date Recorded Sex Assigned at Not on file Legal Sex Female 6:57 AM CDT Gender Identity Not on file Sexual Orientation Not on file 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 Not on file Not on file Not on file Last Filed Vital Signs Vital Sign Reading Time Taken Comments Blood Pressure 110/76 05/26/2023 11:34 AM CDT Pulse 77 05/26/2023 11:34 AM CDT Temperature 36.5 C (97.7 F) 05/26/2023 11:34 AM CDT Respiratory Rate - - Oxygen Saturation 100% 09/07/2022 2:25 PM POWER CLEANER OPERATOR Inhaled Oxygen Concentration - - Weight 79.4 kg (175 lb) 10/21/2022 12:23 PM POWER CLEANER OPERATOR Height 162.6 cm (5' 4.02) 04/20/2022 10:26 AM C DT Body Mass Index 30.02 04/20/2022 10:26 AM CDT Plan of Treatment Health Maintenance Due Date Last Done Comments Hep C Screening (Preventive Services) 1969 Tuberculosis Screening 1969 Hep B Screening ([employer]) 1970 HepB Vaccine (1) 1988 Adult Preventive Visit 06/18/2004 06/18/2003 FIT Colon Cancer Screening 2013 Pneumococcal Vaccine 50+ Yrs (1 of 1 - PCV) 2019 Zoster/Shingles Vaccine (1 of 2) 2019 DTaP/Tdap/Td Vaccine (3 - Tdap) 10/04/2023 10/04/2013, 02/09/2000, 02/09/2000 Mammogram 08/04/2024 08/04/2023, 1204/2022, 07/07/2021, Additional history exists COVID-19 Vaccine ( season) 2025 07/20/2021, 12/08/2020, 11/17/2020 Influenza Vaccine (#1) 2025 3, 07/29/2022, 06/07/2020, Additional history exists Cervical Cancer Screening 07/20/20262020 (Completed), 10/04/2013, 09/28/2012, Additional history exists Cholesterol 07/20/2026 07/20/2021 (Comp leted), 10/04/2013, 10/11/2011 HIV Screening (Preventive Services) Completed 07/07/2021 (Completed) HepA Vaccine Aged Out No longer eligi ble based on patient's age to complete this topic Hib Vaccine Aged Out No longer eligi ble based on patient's age to complete this topic IPV (Polio) Vaccine Aged Out No longe r eligible based on patient's age to complete this topic MCV4 Vaccine Aged Out No longer eligi ble based on patient's age to complete this topic Meningococcal B Vaccine Aged Out No l onger eligible based on patient's age to complete this topic Procedures Procedure Name Priority Date/Time Associated Diagnosis Comments MM MAMMOGRAM SCREENING BILAT W 3D JERMAINE W CAD Routine 08/04/2023 8:28 AM POWER CLEANER OPERATOR LIPID PANEL & DIRECT LDL (IF NEEDED) Routine 10/04/2013 9:44 AM POWER CLEANER OPERATOR Screening for lipoid disorders ANATOMICAL PATH LIQUID BASED Routine 10/04/2013 9:21 AM POWER CLEANER OPERATOR from Last 3 Months or Most Recently Relevant to Health Maintenance Results * MM Mammogram Screening Bilat W 3D Jermaine W CAD (08/04/2023 8:28 AM POWER CLEANER OPERATOR) Anatomical Region Laterality Modality Breast Bilateral Mammography Impressions 08/04/2023 3:31 PM POWER CLEANER OPERATOR : ACR BI-RADS Category 1: Negative RECOMMENDATION: Follow Up Imaging in 12 months - Bilateral The results and recommendations of this examination will be communicated to the patient. Narrative 08/04/2023 3:31 PM POWER CLEANER OPERATOR MM MAMMOGRAM SCREENING BILAT W 3D JERMAINE W CAD performed on 08/04/23 Compared to: 07/29/2022 Foreign Image(S) Mammogram, 07/07/2021 MM Mammogram Screening Bilat W 3D Jermaine W CAD, and 07/06/2020 MM Mammogram Screening Bilat W 3D Jermaine W CAD ? FINDINGS: Bilateral screening mammogram was performed with the assistance of Computer-Aided Detection and breast tomosynthesis. The breasts have scattered areas of fibroglandular density. There is no radiographic evidence of malignancy. us Bonita Amador MD RAD AMBER Final Resu lt * Lipid Panel and Direct LDL(If Needed) (10/04/2013 9:44 AM POWER CLEANER OPERATOR) Cholesterol 191 0 - 200 mg/dL HP CONVERSION Triglycerides 106 0 - 149 mg/dL [facility] CONVERSION HDL Cholesterol 57 >39 mg/dL [facility] CONVERSION Cholesterol/HDL Ratio Screen 3.4 HP CONVERSION LDL Calculated 113 19 - 130 mg/dL HP CONVERSION Hours Fasting 14.0 HP CONVERSION 10/04/2013 9:44 AM POWER CLEANER OPERATOR 10/04/2013 12:42 PM POWER CLEANER OPERATOR us Ritika Reyes MD LAB_1 Final Result HP CONVERSION * Pap Smear (10/04/2013 9:21 AM POWER CLEANER OPERATOR) 10/04/2013 9:21 AM POWER CLEANER OPERATOR Narrative HP CONVERSION - 10/10/2013 5:05 PM POWER CLEANER OPERATOR FINAL GYNECOLOGICAL CYTOLOGY REPORT Pathology #: [id number] Date Obtained: 10/04/2013 Date Received: 10/07/2013 INTERPRETATION/RESULTS: Negative for Intraepithelial Lesion or Malignancy SPECIMEN ADEQUACY: Satisfactory for Evaluation. Endocervical cells/transformation zone component present. Verified on 10/10/2013 by MINIE BACCAM, CT(ASCP) (electronic signature) CLINICAL NOTES: Abnormal bleeding: No, LMP: 09/26/13, Hormonal TX: No LIQUID BASED PAP SMEAR SPECIMEN TYPE: CERVICAL WITH REFLEX TO HPV IF ASCUS PLEASE NOTE: The pap smear is a screening test designed to aid in the detection of cervical cancer and its precursor lesions. It is not a diagnostic procedure and should not be used as the sole means of detecting cervical cancer. Both false-positive and false-negative reports may occur. End of Report Ritika Reyes MD LAB_1 Final Result HP CONVERSION from Last 3 Months or Most Recently Relevant to Health Maintenance Insurance [employer] CHOICE Care Teams Wet Chemistry Analyst Relationship Specialty Start Date End Date Mar Bush, ART PSYCHOTHERAPIST OR THERAPIST, DIRECTOR OF AGRONOMY [address] [place] [address] PCP - General Nurse Practitioner 12/20/21
[2025-05-17 13:20] LABS: Hematocrit* 39.9 % (33.0-51.0); Hemoglobin* 13.6 gm/dL (12.0-16.0); Immature Granulocytes Abs Auto 0.01 K/uL (0.00-0.30); Immature Granulocytes Pct Auto 0.1 %; Lymphocytes Absolute Auto 2.01 K/uL (0.90-2.90); Mean Corpuscular HGB Conc 34 gm/dL (32-36); Mean Corpuscular Hemoglobin 29 pg (26-34); Mean Corpuscular Volume 85 fL (80-100); RDW Coefficient of Variation % 14.1 % (11.5-15.5); Red Blood Count* 4.67 m/uL (4.00-5.20); White Blood Count* 7.25 K/uL (4.50-11.00)
[2025-05-17 13:23] LABS: Slide Review Reflex No
[2025-05-17 13:37] LABS: Albumin* 4.4 g/dL (3.3-5.0); Chloride* 100 mmol/L (96-114); Potassium* 4.0 mmol/L (3.6-5.1); Sodium* 138 mmol/L (135-149)
[2025-05-17 13:39] LABS: Alanine Aminotransferase* 30 U/L (4-35); Anion Gap 7 mEq/L (7-15); Aspartate Amino Transferase* 33 U/L (12-35); Blood Urea Nitrogen* 18 mg/dL (7-30); Carbon Dioxide* 31 mmol/L (20-32); Creatinine* 1.0 mg/dL (0.5-1.5); Est. Creatinine Clearance* 54.89; Estimated Glomerular Filt Rate 67 ml/min
[2025-05-17 13:40] LABS: Alkaline Phosphatase* 76 U/L (40-150); Bilirubin Total* 0.5 mg/dL (0.1-1.5); Calcium* 9.3 mg/dL (8.4-10.6); Glucose* 94 mg/dL (60-115); Total Protein* 7.6 g/dL (6.0-8.3)
[2025-05-17 13:48] LABS: D Dimer Quantitative* 0.68 ug/ml (0.00-0.50)
== END 2025-05-17 15:05 | disposition home or self-care (01) ==
PROVIDERS: Emergency Provider Internal Medicine
DX: R07.9 Chest pain, unspecified (principal)
CPT/HCPCS: 36415; 71045; 80053; 84484; 85025; 85379; 93005; 99283; 99284

== ENCOUNTER 2025-05-27 12:53 | Outpatient (CLI) | payer BC, SELFPAY ==
[2025-05-27 13:53] VITALS: BP 118/68; PULSE 84; RESP 20; O2SAT 96
--- NOTE | 2025-05-27 14:12 | W.PM.STED ---
Stress Test Note Date Date of test: 05/27/25 Providers Referring provider: Jamarcus Leblanc Primary care provider: Roberto Provider AAAGeneric Stress test physician: Augusto De Leon Stress Test Note Stress test ordered: Stress Echo Indication for test: Chest pain Stress test medicine: None Results discussion: Patient is a very nice lady who was seen, in the emergency room we for chest pain, she is here for follow-up stress echo, discussion of the risks benefits and side effects on taken. Pretest EKG, shows normal sinus rhythm, Q-waves are noted inferiorly, no acute ST wave changes, ventricular rate is 91 with a blood pressure 1 20-168. She is exercised for a total time of 9 minutes, achieved a metabolic equivalent of 10.3 Mets, with a maximum heart rate of 159 which is 113% of the maximum, test is terminated because of fulfillment of protocol, she did have some leg fatigue. Did not develop any shortness of breath or any chest pain. Review of the tracing which did show ST wave depression of almost 3 mm noted inferiorly, 2 3 in AVF, and 0.5 mm of depression noted in leads V4 through V6, this corresponds to an inferior lateral type presentation. Impression: Positive electrographic tracing, negative subjective Follow up suggested: Await echo read, the pulmonary read that I reviewed with the tech was negative, final read by Cardiology, we will contact her if this is positive. Otherwise this could be false positive. She recovered normally, had no complaints with this testing facility condition.
== END 2025-05-27 12:54 | disposition home or self-care (01) ==
PROVIDERS: Visit Provider Internal Medicine
DX: R07.9 Chest pain, unspecified (principal)
CPT/HCPCS: 93016; 93325; 93351